=== PATIENT | female | born 1995 | race Caucasian/White ===

== ENCOUNTER → 2018-04-08 | Outpatient (CLI) | payer OTHER | END | disposition home or self-care (01) | LOC: LAB 14:26 | PROVIDERS: ATTEND Physician Assistant | DX: F41.9 Anxiety disorder, unspecified (principal) | CPT/HCPCS: 36415; 84443 ==

== ENCOUNTER → 2018-05-13 | Outpatient (CLI) | payer OTHER ==
[2018-05-13 08:53] LABS: BASOPHILS # (AUTO) 0.05 x10^3/uL (0-0.1); BASOPHILS % (AUTO) 1 % (0-1); EOSINOPHILS # (AUTO) 0.09 x10^3/uL (0-0.4); EOSINOPHILS % (AUTO) 1 % (1-7); LYMPHOCYTES # (AUTO) 2.76 x10^3/uL (1-3.4); LYMPHOCYTES % (AUTO) 29 % (22-44); MD NO; MEAN CORPUSCULAR HEMOGLOBIN 27.3 pg (27.0-34.8); MEAN CORPUSCULAR HGB CONC 32.6 g/dL (32.4-35.8); MEAN CORPUSCULAR VOLUME 83.7 fL (80-100); MEAN PLATELET VOLUME 7.6 fL (7.4-10.4); MONOCYTES % (AUTO) 6 % (2-9); NEUTROPHILS % (AUTO) 63 % (42-75); PLATELET COUNT 371 x10^3/uL (130-400); RED BLOOD COUNT 4.96 x10^6/uL (3.82-5.3); RED CELL DISTRIBUTION WIDTH 14.1 % (9.6-15.2)
[2018-05-13 09:03] LABS: ALANINE AMINOTRANSFERASE 17 U/L (12-78); ALBUMIN 3.4 g/dL (3.4-5.0); ANION GAP 5 mmol/L (5-15); CHLORIDE 108 mmol/L (98-107); CREATININE 0.87 mg/dL (0.55-1.02)
[2018-05-13 09:06] LABS: ALKALINE PHOSPHATASE 80 U/L (45-117); BILIRUBIN,TOTAL 0.2 mg/dL (0.2-1.0); TOTAL PROTEIN 7.2 g/dL (6.4-8.2)
== END | disposition home or self-care (01) ==
LOC: LAB 08:40
PROVIDERS: ATTEND Internal Medicine
DX: D12.6 Benign neoplasm of colon, unspecified (principal)
CPT/HCPCS: 36415; 80053; 85025

== ENCOUNTER 2018-06-14 10:15 | Day surgery (SDC) | payer OTHER ==
[~2018-06-14] VITALS: Ht 157.5 cm; Wt 115.2 kg
[~2018-06-14 10:15] MED LIST: HYDR25TA11 PO; NORG1TAB90 PO; OMEP40CA6 PO; SERT50TA28 PO; SULI150T PO
[2018-06-14 10:39] VITALS: BP 137/80
[2018-06-14] MEDS ORDERED: LACTATED RINGERS 1,000 ML IV SCH (10:42)
[2018-06-14] MEDS ORDERED: ACETAMINOPHEN 325 MG TABLET PO PRN (13:00)
[2018-06-14] MEDS ORDERED: OXYcodone 5 MG/5 ML ORAL.SOL UDC PO PRN (13:00)
[2018-06-14] MEDS ORDERED: ONDANSETRON 2MG/ML, 2ML IV PRN (13:00)
[2018-06-14] MEDS ORDERED: FENTANYL PF 100 MCG/2ML IV PRN (13:00)
[2018-06-14] MEDS ORDERED: ONDANSETRON ODT 8 MG PO PRN (13:00)
[2018-06-14] MEDS ORDERED: PROPOFOL 10 MG/ML, 20ML ONE (14:57)
== END 2018-06-14 13:55 | disposition home or self-care (01) ==
LOC: OUT 10:15
PROVIDERS: ATTEND Internal Medicine
DX: D13.2 Benign neoplasm of duodenum (principal); D12.5 Benign neoplasm of sigmoid colon; D12.8 Benign neoplasm of rectum; K31.7 Polyp of stomach and duodenum; Z98.0 Intestinal bypass and anastomosis status; Z88.0 Allergy status to penicillin; Z90.49 Acquired absence of other specified parts of digestive tract
CPT/HCPCS: 43239; 45331; 81025; 88305; J2704

== ENCOUNTER 2018-06-25 11:00 | Day surgery (SDC) | payer OTHER ==
[~2018-06-25] VITALS: Ht 160 cm; Wt 119.5 kg
[2018-06-25] MEDS ORDERED: LACTATED RINGERS 1,000 ML IV SCH (11:16)
[2018-06-25 11:36] VITALS: BP 138/86
[2018-06-25 11:56] LABS: HCG UR SG 1.021 (1.003-1.030)
[2018-06-25] MEDS ORDERED: PLEASE ENTER HEIGHT AND WEIGHT MC SCH (12:00)
[2018-06-25] MEDS ORDERED: ONDANSETRON 2MG/ML, 2ML ONE (14:04)
[2018-06-25] MEDS ORDERED: NEOSTIGMINE 1 MG/ML, 10ML ONE (14:04)
[2018-06-25] MEDS ORDERED: DEXAMETHASONE 4 MG/ML, 1ML ONE (14:04)
[2018-06-25] MEDS ORDERED: PROPOFOL 10 MG/ML, 20ML ONE (14:04)
[2018-06-25] MEDS ORDERED: ROCURONIUM 10 MG/ML,10ML ONE (14:04)
[2018-06-25] MEDS ORDERED: GLYCOPYRROLATE 0.2MG/1ML, 5ML ONE (14:04)
[2018-06-25] MEDS ORDERED: FENTANYL PF 100 MCG/2ML ONE (14:21)
[2018-06-25] MEDS ORDERED: INDOMETHACIN 50 MG SUPP.RECT ONE (15:38)
[2018-06-25] MEDS ORDERED: ALBUTEROL SULFATE 2.5 MG/3 ML ONE (16:57)
[2018-06-25] MEDS ORDERED: DEXAMETHASONE 4 MG/ML, 1ML IVPush ONE (17:30)
== END 2018-06-25 22:10 | disposition home or self-care (01) ==
LOC: OUT 11:00
PROVIDERS: ATTEND Internal Medicine
DX: D13.2 Benign neoplasm of duodenum (principal); Z88.0 Allergy status to penicillin; Z88.8 Allergy status to other drugs, medicaments and biological substances
CPT/HCPCS: 43251; 81025; 88305; 94640; C1769; J1100; J2405; J2704; J2710; J3010; J3490; J7120; J7613

== ENCOUNTER 2018-07-23 05:13 | Day surgery (SDC) | payer OTHER ==
[~2018-07-23] VITALS: Ht 160 cm; Wt 117.9 kg
[~2018-07-23 05:13] MED LIST changes: +ACETAMINOPHEN 325 MG TABLET PO PRN; +ALBUTEROL SULFATE 2.5 MG/3 ML NPPB ONE; +ALBUTEROL SULFATE 2.5 MG/3 ML NPPB STA; +DEXAMETHASONE 4 MG/ML, 1ML IVPush ONE; +FENTANYL PF 100 MCG/2ML IV PRN; +HALOPERIDOL 5 MG/ML IV PRN; +LABETALOL 5MG/ML, 20ML IV PRN; +MEPERIDINE/PF 25MG/0.5ML IVPush PRN; +MORPHINE SULFATE 4 MG/ML, 1ML IVPush PRN; +ONDANSETRON 2MG/ML, 2ML IV PRN; +OXYcodone 5 MG/5 ML ORAL.SOL UDC PO PRN; +PLEASE ENTER HEIGHT AND WEIGHT MC SCH; +PROMETHAZINE 12.5 MG SUPP PR PRN; +PROMETHAZINE 25 MG SUPP PR PRN; +PROMETHAZINE 25 MG/ML, 1ML IM PRN; +PROMETHAZINE 25 MG/ML, 1ML IV PRN; +hydrALAzine 20 MG/ML, 1ML IV PRN
[2018-07-23] MEDS ORDERED: LACTATED RINGERS 1,000 ML IV SCH (06:03)
[2018-07-23 06:13] VITALS: BP 135/84
[2018-07-23 06:24] LABS: HCG UR SG 1.026 (1.003-1.030)
[2018-07-23] MEDS ORDERED: LIDOCAINE-MPF 1%, 2ML ONE (06:41)
[2018-07-23] MEDS ORDERED: LIDOCAINE-MPF 1%, 2ML INFIL ONE (07:00)
[2018-07-23] MEDS ORDERED: PROPOFOL 10 MG/ML, 20ML ONE ×6 (07:59→08:36)
== END 2018-07-23 12:05 | disposition home or self-care (01) ==
LOC: OUT 05:13
PROVIDERS: ATTEND Internal Medicine
DX: Z09 Encounter for follow-up examination after completed treatment for conditions other than malignant neoplasm (principal); D12.5 Benign neoplasm of sigmoid colon; K63.5 Polyp of colon; K21.9 Gastro-esophageal reflux disease without esophagitis; Z80.0 Family history of malignant neoplasm of digestive organs; Z86.010 Personal history of colon polyps; Z98.0 Intestinal bypass and anastomosis status; Z83.71 Family history of colonic polyps
CPT/HCPCS: 45331; 45346; 81025; 88305; J2704; J7120; 94640; J7613

== ENCOUNTER 2018-09-05 10:41 | Outpatient (CLI) | payer OTHER ==
[~2018-09-05 10:41] MED LIST changes: -ACETAMINOPHEN 325 MG TABLET PO PRN; -ALBUTEROL SULFATE 2.5 MG/3 ML NPPB ONE; -ALBUTEROL SULFATE 2.5 MG/3 ML NPPB STA; -DEXAMETHASONE 4 MG/ML, 1ML IVPush ONE; -FENTANYL PF 100 MCG/2ML IV PRN; -HALOPERIDOL 5 MG/ML IV PRN; -LABETALOL 5MG/ML, 20ML IV PRN; -MEPERIDINE/PF 25MG/0.5ML IVPush PRN; -MORPHINE SULFATE 4 MG/ML, 1ML IVPush PRN; -ONDANSETRON 2MG/ML, 2ML IV PRN; -OXYcodone 5 MG/5 ML ORAL.SOL UDC PO PRN; -PLEASE ENTER HEIGHT AND WEIGHT MC SCH; -PROMETHAZINE 12.5 MG SUPP PR PRN; -PROMETHAZINE 25 MG SUPP PR PRN; -PROMETHAZINE 25 MG/ML, 1ML IM PRN; -PROMETHAZINE 25 MG/ML, 1ML IV PRN; -hydrALAzine 20 MG/ML, 1ML IV PRN
[2018-09-05 11:06] LABS: ALANINE AMINOTRANSFERASE 21 U/L (12-78); ALBUMIN 3.6 g/dL (3.4-5.0); ANION GAP 7 mmol/L (5-15); CALCIUM 9.1 mg/dL (8.5-10.1); CHLORIDE 107 mmol/L (98-107); CREATININE 0.93 mg/dL (0.55-1.02)
[2018-09-05 11:08] LABS: ALKALINE PHOSPHATASE 97 U/L (45-117); BILIRUBIN,TOTAL 0.2 mg/dL (0.2-1.0); TOTAL PROTEIN 7.8 g/dL (6.4-8.2)
== END 2018-09-05 23:59 | disposition home or self-care (01) ==
LOC: LAB 10:41
PROVIDERS: ATTEND Physician Assistant
DX: Z00.00 Encounter for general adult medical examination without abnormal findings (principal); F33.1 Major depressive disorder, recurrent, moderate
CPT/HCPCS: 36415; 80053

== ENCOUNTER 2018-09-27 20:30 | Emergency (ER) | payer OTHER ==
[2018-09-27 20:31] VITALS: BP 162/131
[2018-09-27] MEDS ORDERED: LIDOCAINE-MPF 1%, 5ML INFIL ONE (21:00)
[2018-09-27] MEDS ORDERED: LIDOCAINE-MPF 1%, 5ML ONE (21:02)
== END 2018-09-27 22:00 | disposition home or self-care (01) ==
LOC: ED 21:57
DX: S61.412A Laceration without foreign body of left hand, initial encounter (principal); X58.XXXA Exposure to other specified factors, initial encounter; Y93.89 Activity, other specified; Y92.009 Unspecified place in unspecified non-institutional (private) residence as the place of occurrence of the external cause; Y99.8 Other external cause status
CPT/HCPCS: 12041; 99284

== ENCOUNTER 2019-02-18 09:09 | Day surgery (SDC) | payer OTHER ==
[~2019-02-18] VITALS: Ht 160 cm; Wt 110.0 kg
[~2019-02-18 09:09] MED LIST changes: +CEPH-368 PO; +HYDR-826 PO; -HYDR25TA11 PO; +OMEP40CA42 PO; -OMEP40CA6 PO; +PHEN37.53 PO; +SULF1TAB24 PO
[2019-02-18] MEDS ORDERED: LACTATED RINGERS 1,000 ML IV SCH (09:25)
[2019-02-18 09:38] VITALS: BP 136/82
[2019-02-18 10:20] LABS: HCG UR SG 1.032 (1.003-1.030)
[2019-02-18] MEDS ORDERED: MIDAZOLAM 1 MG/ML, 2ML ONE (11:27)
[2019-02-18] MEDS ORDERED: FENTANYL PF 250 MCG/5ML ONE (11:28)
[2019-02-18] MEDS ORDERED: KETAMINE 10 MG/ML, 20ML ONE (11:50)
[2019-02-18] MEDS ORDERED: ROCURONIUM 10 MG/ML,10ML ONE (11:50)
[2019-02-18] MEDS ORDERED: PROPOFOL 10 MG/ML, 20ML ONE (11:50)
[2019-02-18] MEDS ORDERED: ONDANSETRON 2MG/ML, 2ML ONE (11:50)
[2019-02-18] MEDS ORDERED: DEXAMETHASONE 4 MG/ML, 1ML ONE (11:50)
[2019-02-18] MEDS ORDERED: LABETALOL 5MG/ML, 20ML IV PRN (12:30)
[2019-02-18] MEDS ORDERED: MORPHINE SULFATE 4 MG/ML, 1ML IVPush PRN (12:30)
[2019-02-18] MEDS ORDERED: ACETAMINOPHEN 325 MG TABLET PO PRN (12:30)
[2019-02-18] MEDS ORDERED: MEPERIDINE/PF 25MG/ML,1ML IVPush PRN (12:30)
[2019-02-18] MEDS ORDERED: hydrALAzine 20 MG/ML, 1ML IV PRN (12:30)
[2019-02-18] MEDS ORDERED: PROMETHAZINE 25 MG/ML, 1ML IV PRN (12:30)
[2019-02-18] MEDS ORDERED: DIPHENHYDRAMINE 50 MG/ML, 1ML IVPush PRN (12:30)
[2019-02-18] MEDS ORDERED: OXYcodone 5 MG/5 ML ORAL.SOL UDC PO PRN (12:30)
[2019-02-18] MEDS ORDERED: FENTANYL PF 100 MCG/2ML IV PRN (12:30)
[2019-02-18] MEDS ORDERED: SUGAMMADEX 200 MG/2 ML IVPush ONE (12:40)
[2019-02-18] MEDS ORDERED: ACETAMINOPHEN 325 MG TABLET ONE (13:14)
== END 2019-02-18 14:05 | disposition home or self-care (01) ==
LOC: OUT 09:09
PROVIDERS: ATTEND Internal Medicine
DX: K31.7 Polyp of stomach and duodenum (principal); D13.2 Benign neoplasm of duodenum; D13.39 Benign neoplasm of other parts of small intestine; K21.9 Gastro-esophageal reflux disease without esophagitis; E66.01 Morbid (severe) obesity due to excess calories; Z68.41 Body mass index [BMI] 40.0-44.9, adult; Z88.0 Allergy status to penicillin; Z88.8 Allergy status to other drugs, medicaments and biological substances
CPT/HCPCS: 44361; 44364; 44799; 81025; 88305; J1100; J2250; J2405; J2704; J3010; J7120

== ENCOUNTER → 2019-05-09 | Outpatient (CLI) | payer OTHER ==
[2019-05-09 14:26] LABS: ALANINE AMINOTRANSFERASE 22 U/L (12-78); ALBUMIN 3.5 g/dL (3.4-5.0); ANION GAP 4 mmol/L (5-15); CALCIUM 8.9 mg/dL (8.5-10.1); CHLORIDE 113 mmol/L (98-107); CREATININE 0.66 mg/dL (0.55-1.02)
[2019-05-09 14:28] LABS: ALKALINE PHOSPHATASE 77 U/L (45-117); BILIRUBIN,TOTAL 0.3 mg/dL (0.2-1.0); TOTAL PROTEIN 7.6 g/dL (6.4-8.2)
[2019-05-09 15:12] LABS: MEAN CORPUSCULAR HEMOGLOBIN 26.4 pg (27.0-34.8); MEAN CORPUSCULAR HGB CONC 32.8 g/dL (32.4-35.8); MEAN CORPUSCULAR VOLUME 80.5 fL (80-100); MEAN PLATELET VOLUME 9.1 fL (7.4-10.4); PLATELET COUNT 325 x10^3/uL (130-400); RED BLOOD COUNT 5.05 x10^6/uL (3.82-5.3); RED CELL DISTRIBUTION WIDTH 15.1 % (9.6-15.2)
[2019-05-09 15:13] LABS: BASOPHILS # (AUTO) 0.13 x10^3/uL (0-0.1); BASOPHILS % (AUTO) 1 % (0-1); EOSINOPHILS % (AUTO) 1 % (1-7); LYMPHOCYTES # (AUTO) 2.38 x10^3/uL (1-3.4); LYMPHOCYTES % (AUTO) 23 % (22-44); MD SCAN; MONOCYTES # (AUTO) 0.53 x10^3/uL (0.2-0.8); MONOCYTES % (AUTO) 5 % (2-9); NEUTROPHILS # (AUTO) 7.24 x10^3/uL (1.8-6.8); NEUTROPHILS % (AUTO) 70 % (42-75)
== END | disposition home or self-care (01) ==
LOC: STAR 13:03
PROVIDERS: ATTEND Surgery
DX: Z01.818 Encounter for other preprocedural examination (principal)
CPT/HCPCS: 36415; 80053; 85025; 93005

== ENCOUNTER 2019-05-13 08:03 | Outpatient (CLI) | payer OTHER | END 2019-05-13 23:59 | disposition home or self-care (01) | LOC: WOUND 08:03 | PROVIDERS: ATTEND Nurse Practitioner Family | DX: Z48.815 Encounter for surgical aftercare following surgery on the digestive system (principal); Z93.2 Ileostomy status; F32.9 Major depressive disorder, single episode, unspecified | CPT/HCPCS: 99213 ==

== ENCOUNTER 2019-05-14 05:56 | Inpatient (IN) | payer OTHER ==
[~2019-05-14] VITALS: Ht 160 cm; Wt 108.9 kg
[2019-05-14] MEDS ORDERED: LACTATED RINGERS 1,000 ML IV SCH (06:38)
[2019-05-14 06:39] VITALS: BP 128/85
[2019-05-14 07:18] LABS: HCG UR SG 1.025 (1.003-1.030)
[2019-05-14] MEDS ORDERED: MIDAZOLAM 1 MG/ML, 2ML ONE (07:59)
[2019-05-14] MEDS ORDERED: FENTANYL PF 250 MCG/5ML ONE (07:59)
[2019-05-14] MEDS ORDERED: LIDOCAINE PF 2%, 5ML ONE (08:35)
[2019-05-14] MEDS ORDERED: PROPOFOL 10 MG/ML, 20ML ONE (10:02)
[2019-05-14] MEDS ORDERED: ROCURONIUM 10MG/ML,5ML ONE ×2 (10:02)
[2019-05-14] MEDS ORDERED: DEXAMETHASONE 4 MG/ML, 1ML ONE ×2 (10:03)
[2019-05-14] MEDS ORDERED: LIDOCAINE-MPF 2% ,5ML ONE (10:03)
[2019-05-14] MEDS ORDERED: CEFOTETAN PMX 2GM/50ML 50 ML ONE (10:03)
[2019-05-14] MEDS ORDERED: ONDANSETRON 2MG/ML, 2ML ONE (10:03)
[2019-05-14] MEDS ORDERED: SUGAMMADEX 200 MG/2 ML IVPush ONE (11:38)
[2019-05-14] MEDS ORDERED: HYDROmorphone 1 MG/ML, 1ML INJ ONE (12:07)
[2019-05-14] MEDS ORDERED: OXYcodone 5 MG/5 ML ORAL.SOL UDC ONE (12:07)
[2019-05-14] MEDS ORDERED: FENTANYL PF 100 MCG/2ML ONE ×2 (12:07→13:22)
[2019-05-14] MEDS: FENTANYL PF 100 MCG/2ML IV PRN ×4 (12:10→13:33)
[2019-05-14] MEDS ORDERED: morphine SULFATE 10 MG/ML, 1ML ONE (12:21)
[2019-05-14] MEDS ORDERED: ACETAMINOPHEN 325 MG TABLET PO PRN (12:30)
[2019-05-14] MEDS ORDERED: ONDANSETRON 2MG/ML, 2ML IV PRN ×2 (12:30→15:00)
[2019-05-14] MEDS: MORPHINE SULFATE 4 MG/ML, 1ML IVPush PRN ×3 (12:30→13:24)
[2019-05-14] MEDS ORDERED: LORazepam 2 MG/ML, 1ML IVPush PRN ×2 (12:30→15:00)
[2019-05-14] MEDS ORDERED: KETOROLAC 30 MG/1 ML IV PRN (12:30)
[2019-05-14] MEDS ORDERED: ACETAMINOPHEN 650 MG/20.3 ML UDC ONE (12:38)
[2019-05-14] MEDS ORDERED: KETOROLAC 30 MG/1 ML ONE (12:38)
[2019-05-14] MEDS ORDERED: OXYcodone 5 MG/5 ML ORAL.SOL UDC PO PRN (13:00)
[2019-05-14] MEDS ORDERED: MORPHINE SULFATE 4 MG/ML, 1ML ONE (13:23)
[2019-05-14] MEDS ORDERED: DIPHENHYDRAMINE 25 MG CAPSULE PO PRN (15:00)
[2019-05-14] MEDS ORDERED: TRAZODONE 50MG TABLET PO PRN (15:00)
[2019-05-14] MEDS ORDERED: HALOPERIDOL 5 MG/ML IVPush PRN (15:00)
[2019-05-14] MEDS ORDERED: SCOPOLAMINE PATCH, 1.5MG PATCH.TD72 TD PRN (15:00)
[2019-05-14] MEDS ORDERED: DEXAMETHASONE 4 MG/ML, 1ML IVPush PRN (15:00)
[2019-05-14] MEDS ORDERED: LORazepam 1MG TABLET PO PRN (15:00)
[2019-05-14] MEDS ORDERED: CALCIUM CARBONATE 500 MG TAB.CHEW PO PRN (15:00)
[2019-05-14] MEDS ORDERED: DIPHENHYDRAMINE 50 MG/ML, 1ML IVPush PRN (15:00)
[2019-05-14] MEDS: D5%-0.45NACL+KCL 20MEQ 1,000 ML IV SCH (16:51)
[2019-05-14] MEDS: ACETAMINOPHEN 500 MG TABLET PO SCH ×2 (16:52→20:26)
[2019-05-14] MEDS: OXYcodone IR 5MG TABLET PO PRN ×2 (18:14→21:20)
[2019-05-14 19:29] VITALS: BP 120/80
[2019-05-15 00:39] VITALS: BP 97/63
[2019-05-15 01:21] VITALS: BP 112/70
[2019-05-15] MEDS: ACETAMINOPHEN 500 MG TABLET PO SCH ×4 (02:21→21:17)
[2019-05-15 03:32] LABS: MEAN CORPUSCULAR HEMOGLOBIN 26.4 pg (27.0-34.8); MEAN CORPUSCULAR HGB CONC 32.1 g/dL (32.4-35.8); MEAN CORPUSCULAR VOLUME 82.1 fL (80-100); MEAN PLATELET VOLUME 8.3 fL (7.4-10.4); PLATELET COUNT 323 x10^3/uL (130-400); RED BLOOD COUNT 4.63 x10^6/uL (3.82-5.3); RED CELL DISTRIBUTION WIDTH 15.1 % (9.6-15.2)
[2019-05-15 03:38] LABS: ALBUMIN 3.3 g/dL (3.4-5.0); ANION GAP 5 mmol/L (5-15); CALCIUM 8.6 mg/dL (8.5-10.1); CHLORIDE 109 mmol/L (98-107); CREATININE 0.75 mg/dL (0.55-1.02)
[2019-05-15 03:46] LABS: BASOPHILS # (AUTO) 0.17 x10^3/uL (0-0.1); BASOPHILS % (AUTO) 1 % (0-1); EOSINOPHILS # (AUTO) 0.08 x10^3/uL (0-0.4); EOSINOPHILS % (AUTO) 0 % (1-7); LYMPHOCYTES # (AUTO) 1.63 x10^3/uL (1-3.4); LYMPHOCYTES % (AUTO) 8 % (22-44); MD SCAN; MONOCYTES % (AUTO) 8 % (2-9); NEUTROPHILS % (AUTO) 82 % (42-75)
[2019-05-15 04:04] VITALS: BP 107/67
[2019-05-15] MEDS: D5%-0.45NACL+KCL 20MEQ 1,000 ML IV SCH ×2 (04:06→19:36)
[2019-05-15] MEDS: OXYcodone IR 5MG TABLET PO PRN ×5 (04:27→21:17)
[2019-05-15 07:10] VITALS: BP 102/58
[2019-05-15] MEDS: ENOXAPARIN 40 MG/0.4 ML SQ SCH (08:34)
[2019-05-15 13:28] VITALS: BP 98/62
[2019-05-15 19:51] VITALS: BP 99/63
[2019-05-16] MEDS: OXYcodone IR 5MG TABLET PO PRN ×6 (00:19→20:51)
[2019-05-16 02:28] VITALS: BP 117/61
[2019-05-16] MEDS: ACETAMINOPHEN 500 MG TABLET PO SCH ×4 (03:20→20:49)
[2019-05-16 05:15] LABS: ALBUMIN 3.1 g/dL (3.4-5.0); ANION GAP 5 mmol/L (5-15); CALCIUM 8.4 mg/dL (8.5-10.1); CHLORIDE 107 mmol/L (98-107); CREATININE 0.64 mg/dL (0.55-1.02)
[2019-05-16 05:27] LABS: BASOPHILS % (AUTO) 1 % (0-1); EOSINOPHILS # (AUTO) 0.16 x10^3/uL (0-0.4); EOSINOPHILS % (AUTO) 2 % (1-7); LYMPHOCYTES # (AUTO) 3.06 x10^3/uL (1-3.4); LYMPHOCYTES % (AUTO) 29 % (22-44); MD NO; MEAN CORPUSCULAR HEMOGLOBIN 26.5 pg (27.0-34.8); MEAN CORPUSCULAR HGB CONC 32.3 g/dL (32.4-35.8); MEAN CORPUSCULAR VOLUME 82.2 fL (80-100); MEAN PLATELET VOLUME 8.2 fL (7.4-10.4); MONOCYTES # (AUTO) 0.75 x10^3/uL (0.2-0.8); MONOCYTES % (AUTO) 7 % (2-9); NEUTROPHILS # (AUTO) 6.33 x10^3/uL (1.8-6.8); NEUTROPHILS % (AUTO) 61 % (42-75); PLATELET COUNT 270 x10^3/uL (130-400); RED BLOOD COUNT 4.25 x10^6/uL (3.82-5.3); RED CELL DISTRIBUTION WIDTH 14.9 % (9.6-15.2)
[2019-05-16 07:33] VITALS: BP 107/69
[2019-05-16] MEDS: ENOXAPARIN 40 MG/0.4 ML SQ SCH (09:16)
[2019-05-16] MEDS: D5%-0.45NACL+KCL 20MEQ 1,000 ML IV SCH (09:54)
[2019-05-16 15:42] VITALS: BP 100/67
[2019-05-16 22:00] VITALS: BP 117/73
[2019-05-17] MEDS: D5%-0.45NACL+KCL 20MEQ 1,000 ML IV SCH
[2019-05-17 03:00] VITALS: BP 111/56
[2019-05-17 03:49] LABS: BASOPHILS # (AUTO) 0.05 x10^3/uL (0-0.1); BASOPHILS % (AUTO) 1 % (0-1); EOSINOPHILS # (AUTO) 0.24 x10^3/uL (0-0.4); EOSINOPHILS % (AUTO) 2 % (1-7); LYMPHOCYTES # (AUTO) 2.73 x10^3/uL (1-3.4); LYMPHOCYTES % (AUTO) 27 % (22-44); MD NO; MEAN CORPUSCULAR HGB CONC 32.7 g/dL (32.4-35.8); MEAN CORPUSCULAR VOLUME 82.3 fL (80-100); MEAN PLATELET VOLUME 8.3 fL (7.4-10.4); MONOCYTES # (AUTO) 0.71 x10^3/uL (0.2-0.8); MONOCYTES % (AUTO) 7 % (2-9); NEUTROPHILS # (AUTO) 6.33 x10^3/uL (1.8-6.8); NEUTROPHILS % (AUTO) 63 % (42-75); PLATELET COUNT 276 x10^3/uL (130-400); RED BLOOD COUNT 4.12 x10^6/uL (3.82-5.3); RED CELL DISTRIBUTION WIDTH 15.4 % (9.6-15.2)
[2019-05-17 03:57] LABS: ALBUMIN 2.9 g/dL (3.4-5.0); ANION GAP 6 mmol/L (5-15); CALCIUM 8.4 mg/dL (8.5-10.1); CHLORIDE 108 mmol/L (98-107); CREATININE 0.63 mg/dL (0.55-1.02)
[2019-05-17] MEDS: OXYcodone IR 5MG TABLET PO PRN (05:37)
[2019-05-17] MEDS: ACETAMINOPHEN 500 MG TABLET PO SCH ×2 (05:37→13:28)
[2019-05-17 08:48] VITALS: BP 98/62
[2019-05-17] MEDS: ENOXAPARIN 40 MG/0.4 ML SQ SCH (10:02)
[2019-05-17 13:29] VITALS: BP 125/78
== END 2019-05-17 14:49 | disposition home or self-care (01) | DRG 330 ==
LOC: ORIP 05:56 → 4NE 14:00 → DCLOUNGE 05-17 14:39
PROVIDERS: ADMIT Surgery; ATTEND Surgery
PROC: 0DBP4ZZ Excision of Rectum, Percutaneous Endoscopic Approach (ICD-10-PCS; 2019-05-14)
PROC: 8E0W0CZ Robotic Assisted Procedure of Trunk Region, Open Approach (ICD-10-PCS; 2019-05-14)
PROC: 0D1B4Z4 Bypass Ileum to Cutaneous, Percutaneous Endoscopic Approach (ICD-10-PCS; principal; 2019-05-14 08:30)
DX: D12.6 Benign neoplasm of colon, unspecified (principal); Z68.41 Body mass index [BMI] 40.0-44.9, adult; F32.9 Major depressive disorder, single episode, unspecified; Z88.0 Allergy status to penicillin; Z88.8 Allergy status to other drugs, medicaments and biological substances; E66.01 Morbid (severe) obesity due to excess calories
CPT/HCPCS: 36415; J3490; 80048; 81025; 82040; 85025; 86850; 86900; 88309; G0378; J1100; J1650; J1885; J2250; J2405; J2704; J3010; J2270; J3480; J7120

== ENCOUNTER → 2019-05-20 | Outpatient (CLI) | payer OTHER ==
[2019-05-20 14:09] LABS: MICROSCOPIC NOT IND
[2019-05-20 14:13] LABS: CULTURE INDICATED? NO
== END | disposition home or self-care (01) ==
LOC: LAB 13:14
PROVIDERS: ATTEND Surgery
DX: R10.9 Unspecified abdominal pain (principal)
CPT/HCPCS: 81003

== ENCOUNTER → 2019-05-20 | Outpatient (CLI) | payer OTHER | END | disposition home or self-care (01) | LOC: WOUND 13:59 | PROVIDERS: ATTEND Nurse Practitioner Family | DX: Z48.815 Encounter for surgical aftercare following surgery on the digestive system (principal); Z93.2 Ileostomy status; F32.9 Major depressive disorder, single episode, unspecified | CPT/HCPCS: 99213 ==

== ENCOUNTER → 2019-05-26 | Outpatient (CLI) | payer OTHER | END | disposition home or self-care (01) | LOC: WOUND 14:23 | PROVIDERS: ATTEND Nurse Practitioner Family | DX: Z48.815 Encounter for surgical aftercare following surgery on the digestive system (principal); F32.9 Major depressive disorder, single episode, unspecified; E66.01 Morbid (severe) obesity due to excess calories; Z93.2 Ileostomy status; Z88.0 Allergy status to penicillin; Z88.8 Allergy status to other drugs, medicaments and biological substances; Z68.41 Body mass index [BMI] 40.0-44.9, adult | CPT/HCPCS: 99212 ==

== ENCOUNTER → 2019-05-30 | Outpatient (CLI) | payer OTHER | END | disposition home or self-care (01) | LOC: WOUND 12:53 | PROVIDERS: ATTEND Family Medicine | DX: Z48.815 Encounter for surgical aftercare following surgery on the digestive system (principal); Z93.2 Ileostomy status; F32.9 Major depressive disorder, single episode, unspecified; E66.01 Morbid (severe) obesity due to excess calories; Z88.0 Allergy status to penicillin; Z88.8 Allergy status to other drugs, medicaments and biological substances; Z68.41 Body mass index [BMI] 40.0-44.9, adult | CPT/HCPCS: 99212 ==

== ENCOUNTER 2019-06-06 12:39 | Outpatient (CLI) | payer OTHER | END 2019-06-06 23:59 | disposition home or self-care (01) | LOC: WOUND 12:39 | PROVIDERS: ATTEND Family Medicine | DX: Z48.815 Encounter for surgical aftercare following surgery on the digestive system (principal); Z93.2 Ileostomy status; F32.9 Major depressive disorder, single episode, unspecified; E66.01 Morbid (severe) obesity due to excess calories; Z88.0 Allergy status to penicillin; Z88.8 Allergy status to other drugs, medicaments and biological substances; Z68.41 Body mass index [BMI] 40.0-44.9, adult | CPT/HCPCS: 99214 ==

== ENCOUNTER 2019-07-09 16:20 | Outpatient (CLI) | payer OTHER | END 2019-07-09 23:59 | disposition home or self-care (01) | LOC: RAD 16:20 | PROVIDERS: ATTEND Internal Medicine | DX: T18.2XXA Foreign body in stomach, initial encounter (principal); X58.XXXA Exposure to other specified factors, initial encounter; Y93.89 Activity, other specified; Y92.89 Other specified places as the place of occurrence of the external cause; Y99.8 Other external cause status | CPT/HCPCS: 74022 ==

== ENCOUNTER 2019-10-31 07:38 | Outpatient (CLI) | payer OTHER | END 2019-10-31 23:59 | disposition home or self-care (01) | LOC: STAR 07:38 | PROVIDERS: ATTEND Internal Medicine | DX: Z02.9 Encounter for administrative examinations, unspecified (principal) ==

== ENCOUNTER 2019-11-04 05:41 | Day surgery (SDC) | payer OTHER ==
[~2019-11-04] VITALS: Ht 160 cm; Wt 102.0 kg
[2019-11-04] MEDS ORDERED: CHLORHEXIDINE 15 ML UDC MM STA (06:05)
[2019-11-04] MEDS ORDERED: LACTATED RINGERS 1,000 ML IV SCH (06:05)
[2019-11-04] MEDS ORDERED: CHLORHEXIDINE 15 ML UDC ONE (06:11)
[2019-11-04 06:21] VITALS: BP 130/72
[2019-11-04] MEDS ORDERED: FENTANYL PF 100 MCG/2ML ONE (06:52)
[2019-11-04] MEDS ORDERED: MIDAZOLAM 1 MG/ML, 2ML ONE (06:52)
[2019-11-04 07:08] LABS: HCG UR SG 1.029 (1.003-1.030)
[2019-11-04] MEDS ORDERED: FENTANYL PF 100 MCG/2ML IV PRN (07:30)
[2019-11-04] MEDS ORDERED: PROMETHAZINE 25 MG/ML, 1ML IVPush PRN (07:30)
[2019-11-04] MEDS ORDERED: ONDANSETRON 2MG/ML, 2ML IVPush PRN (07:30)
[2019-11-04] MEDS ORDERED: PROPOFOL 10 MG/ML, 100ML IV ONE (07:50)
== END 2019-11-04 09:50 | disposition home or self-care (01) ==
LOC: OUT 05:41
PROVIDERS: ATTEND Internal Medicine
DX: D13.2 Benign neoplasm of duodenum (principal); Z11.59 Encounter for screening for other viral diseases; K31.7 Polyp of stomach and duodenum; F12.90 Cannabis use, unspecified, uncomplicated; E66.01 Morbid (severe) obesity due to excess calories; Z88.0 Allergy status to penicillin; Z88.8 Allergy status to other drugs, medicaments and biological substances; Z90.49 Acquired absence of other specified parts of digestive tract; Z79.899 Other long term (current) drug therapy; Z15.89 Genetic susceptibility to other disease; Z68.39 Body mass index [BMI] 39.0-39.9, adult; Z83.79 Family history of other diseases of the digestive system
CPT/HCPCS: 36415; 43239; 81025; 87635; 88305; J2250; J2704; J3010; J7120

== ENCOUNTER → 2019-11-17 | Outpatient (CLI) | payer OTHER | END | disposition home or self-care (01) | LOC: WOUND 11:04 | PROVIDERS: ATTEND Internal Medicine | DX: Z43.2 Encounter for attention to ileostomy (principal); F32.9 Major depressive disorder, single episode, unspecified; F12.90 Cannabis use, unspecified, uncomplicated; E66.01 Morbid (severe) obesity due to excess calories; Z68.39 Body mass index [BMI] 39.0-39.9, adult; Z88.0 Allergy status to penicillin; Z88.8 Allergy status to other drugs, medicaments and biological substances; Z90.49 Acquired absence of other specified parts of digestive tract; Z79.899 Other long term (current) drug therapy | CPT/HCPCS: 99214 ==

== ENCOUNTER → 2020-05-21 | Outpatient (CLI) | payer OTHER | END | disposition home or self-care (01) | LOC: WOUND 10:21 | PROVIDERS: ATTEND Internal Medicine | DX: Z43.2 Encounter for attention to ileostomy (principal); E66.01 Morbid (severe) obesity due to excess calories; F32.9 Major depressive disorder, single episode, unspecified; Z68.39 Body mass index [BMI] 39.0-39.9, adult; Z90.49 Acquired absence of other specified parts of digestive tract | CPT/HCPCS: 99213 ==

== ENCOUNTER 2020-09-14 07:52 | Day surgery (SDC) | payer OTHER ==
[~2020-09-14] VITALS: Ht 157.5 cm; Wt 97.1 kg
[~2020-09-14 07:52] MED LIST changes: -OMEP40CA42 PO; +OMEP40CA8 PO; +SULF-23 PO; -SULF1TAB24 PO
[2020-09-14] MEDS ORDERED: KETOROLAC 30 MG/1 ML IVPush PRN (08:00)
[2020-09-14] MEDS ORDERED: hydrALAzine 20 MG/ML, 1ML IV PRN (08:00)
[2020-09-14] MEDS ORDERED: EPHEDRINE 50 MG/ML, 1ML IVPush PRN (08:00)
[2020-09-14] MEDS ORDERED: ONDANSETRON 2MG/ML, 2ML IVPush PRN (08:00)
[2020-09-14] MEDS ORDERED: PROMETHAZINE 25 MG/ML, 1ML IVPush PRN (08:00)
[2020-09-14] MEDS ORDERED: ACETAMINOPHEN 325 MG TABLET PO PRN (08:00)
[2020-09-14] MEDS ORDERED: FENTANYL PF 100 MCG/2ML IV PRN (08:00)
[2020-09-14] MEDS ORDERED: LABETALOL 5MG/ML, 20ML IV PRN (08:00)
[2020-09-14 08:22] VITALS: BP 117/77
[2020-09-14] MEDS ORDERED: CHLORHEXIDINE 15 ML UDC PO ONE (08:30)
[2020-09-14] MEDS ORDERED: CHLORHEXIDINE 15 ML UDC ONE (08:31)
[2020-09-14 08:35] LABS: HCG UR SG 1.032 (1.003-1.030)
[2020-09-14] MEDS ORDERED: LACTATED RINGERS 1,000 ML IV SCH (09:00)
[2020-09-14] MEDS ORDERED: PROPOFOL 50 ML ONE (09:15)
[2020-09-14] MEDS ORDERED: PROPOFOL 10 MG/ML, 20ML ONE (09:44)
== END 2020-09-14 11:02 | disposition home or self-care (01) ==
LOC: OUT 07:52
PROVIDERS: ATTEND Internal Medicine
DX: K31.7 Polyp of stomach and duodenum (principal); D13.39 Benign neoplasm of other parts of small intestine; F12.90 Cannabis use, unspecified, uncomplicated; Z88.0 Allergy status to penicillin; Z88.8 Allergy status to other drugs, medicaments and biological substances; Z79.899 Other long term (current) drug therapy; Z72.89 Other problems related to lifestyle; Z98.890 Other specified postprocedural states; Z15.89 Genetic susceptibility to other disease; Z20.822 Contact with and (suspected) exposure to COVID-19
CPT/HCPCS: 44361; 81025; 88305; J2704; J7120; U0003; U0005